=== PATIENT | male | born 1955 | race Caucasian/White ===

== ENCOUNTER → 2020-08-05 18:38 | Outpatient (CLI) | payer MEDICARE, SELFPAY ==
[2020-08-05 19:05] LABS: Basophils # 0.1 K/mm3 (0-0.2); Basophils % 0.7 % (0.1-2.0); Eosinophils # 0.1 K/mm3 (0.0-0.4); Eosinophils % 0.9 % (0.1-12.0); Hematocrit 52.1 % (42.0-52.0); Hemoglobin 17.3 g/dL (14.1-18.0); Lymphocytes # 1.8 K/mm3 (0.7-4.5); Lymphocytes % 21.1 % (10-50); Mean Corpuscular HGB Conc 33.1 g/dL (31.8-35.4); Mean Corpuscular Hemoglobin 28.8 pg (27.0-31.2); Mean Platelet Volume 7.8 fl (7.4-10.4); Monocytes # 0.6 K/mm3 (0.1-1.0); Monocytes % 6.5 % (1.7-9.3); Neutrophils % 70.8 % (37.0-80.0); Platelet Count 234 K/mm3 (142-424); Red Blood Count 5.99 M/mm3 (4.60-6.20); White Blood Count 8.5 K/mm3 (4.8-10.8)
[2020-08-05 19:21] LABS: Alanine Aminotransferase 63 U/L (12-78); Albumin Level 5.2 g/dl (3.5-5.0); Albumin/Globulin Ratio 1.4 (1.1-1.8); Alkaline Phosphatase 83 U/L (38-126); Aspartate Amino Transferase 58 U/L (17-59); Blood Urea Nitrogen 15 mg/dl (9-20); Calcium 10.3 mg/dl (8.4-10.2); Carbon Dioxide 31 mmol/L (22.0-30.0); Chloride 98 mmol/L (98-107); Chol/HDL Ratio 4.1 (1-3.5); Cholesterol 249 mg/dl (140-200); Estimated Glomerular Filt Rate 67 ml/min (>60); GFR (African American) 81 ML/MIN (>60); Globulin 3.6 g/dL (1.3-3.2); Glucose 87 mg/dl (74-100); HDL Cholesterol 61 mg/dl (40-60); Sodium 139 mmol/L (136-145); Total Protein,Serum 8.8 g/dl (6.3-8.2); Triglycerides 163 mg/dl (30-150); VLDL Cholesterol 33 mg/dL (0-40)
[2020-08-05 19:32] LABS: Direct LDL Cholesterol 157.15 mg/dL (100-129)
[2020-08-05 19:38] LABS: T4 (Thyroxine) 6.8 ug/dl (5.53-11.0)
[2020-08-05 19:51] LABS: Prostate Specific Ag Screen 1.8 ng/ml (0.0-4.0); Thyroid Stimulating Hormone 2.02 uIU/mL (0.465-4.68)
== END ==
PROVIDERS: Visit Provider Family Medicine
DX: R53.83 Other fatigue (principal); Z12.5 Encounter for screening for malignant neoplasm of prostate; E78.5 Hyperlipidemia, unspecified
CPT/HCPCS: 80053; 80061; 84436; 84443; 85025; G0103

== ENCOUNTER → 2020-08-17 08:11 | Outpatient (CLI) | payer MEDICARE, OTHER, SELFPAY ==
--- NOTE | 2020-08-17 08:11 | US_ITS ---
PROCEDURE: US ABDOMEN LIMITED CLINICAL INDICATION: attention liver Elevated liver enzymes COMPARISON: No exams were available for comparison FINDINGS: PANCREAS: Unremarkable. No obvious mass or abnormal fluid collection. No ductal dilatation LIVER: There is a 19 x 17 mm cyst within the left hepatic lobe.. Homogeneous echogenicity. No intrahepatic biliary ductal dilatation evident. There is appropriate direction of blood flow within a non dilated portal vein. Fatty liver. RIGHT KIDNEY: Unremarkable. Normal size and echogenicity. No hydronephrosis GALLBLADDER: Multiple gallstones are present. The common bile duct is normal at 4 mm. No gallbladder wall thickening or pericholecystic fluid is evident. IMPRESSION: 1. Cholelithiasis. 2. 19 mm hepatic cyst. Fatty liver Dictated by: Alireza Mcknight MD 08/17/2020 18:45 Alireza Mcknight MD in [place] 08/17/2020 18:45
== END ==
PROVIDERS: PCP Family Medicine; Visit Provider Family Medicine
DX: R17 Unspecified jaundice (principal)
CPT/HCPCS: 76705

== ENCOUNTER → 2020-08-31 13:53 | Outpatient (CLI) | payer MEDICARE, OTHER, SELFPAY ==
[2020-08-31 15:08] LABS: Chloride 102 mmol/L (98-107); Sodium 141 mmol/L (136-145)
[2020-08-31 15:10] LABS: Amylase 67 U/L (30-110); Blood Urea Nitrogen 20 mg/dl (9-20); Estimated Glomerular Filt Rate 60 ml/min (>60); GFR (African American) 73 ML/MIN (>60)
[2020-08-31 15:11] LABS: Alanine Aminotransferase 57 U/L (12-78); Albumin Level 4.9 g/dl (3.5-5.0); Albumin/Globulin Ratio 1.5 (1.1-1.8); Alkaline Phosphatase 87 U/L (38-126); Aspartate Amino Transferase 50 U/L (17-59); Bilirubin,Total 1.6 mg/dl (0.2-1.3); Calcium 10.4 mg/dl (8.4-10.2); Carbon Dioxide 30 mmol/L (22.0-30.0); Globulin 3.2 g/dL (1.3-3.2); Glucose 94 mg/dl (74-100); Lipase 98 U/L (23-300); Total Protein,Serum 8.1 g/dl (6.3-8.2)
== END ==
PROVIDERS: Visit Provider Surgery
DX: Z80.0 Family history of malignant neoplasm of digestive organs (principal); K80.20 Calculus of gallbladder without cholecystitis without obstruction; E80.6 Other disorders of bilirubin metabolism; K76.9 Liver disease, unspecified
CPT/HCPCS: 36415; 80053; 82150; 83690

== ENCOUNTER → 2020-09-05 09:44 | Outpatient (CLI) | payer MEDICARE, OTHER, SELFPAY ==
--- NOTE | 2020-09-05 09:44 | CT_ITS ---
PROCEDURE: CT ABDOMEN WO/W CON CLINICAL HISTORY: elevated bilrubin Attn pancreas COMPARISON: US US ABDOMEN LIMITED from 08/17/2020 TECHNIQUE: Axial images obtained with sagittal and coronal reformats. All CT scans at the facility use one or more dose reduction, viz: automated exposure control, ma/kV adjustment per patient size (including targeted exams where dose is matched to indication, i.e. head), or iterative reconstruction technique. FINDINGS: 5 mm noncalcified nodules present in the region of the right minor fissure and may be due to small lymph node. Dynamic post enhanced images are obtained. Hepatic steatosis. There is a 2 cm enhancing lesion in the left hepatic lobe segment 4A. This is not discernible on the unenhanced images or the immediate arterial phase images but shows homogeneous enhancement equal to the vasculature enhancement on the portal phase images and 5 minutes delayed images. No peripheral puddling of contrast. This may account for the hypoechoic abnormality noted on ultrasound as no cyst are apparent on this exam. There is some focal fatty sparing in the gallbladder fossa region. Gallstones are noted. No biliary dilatation. The spleen, adrenal glands, and pancreas have an unremarkable appearance. Small bilateral renal cyst. No renal or ureteral calculi or hydronephrosis. The No evidence of appendicitis. IMPRESSION: 1. Cholelithiasis. 2. Enhancing lesion in the left hepatic lobe measuring 2 cm. Enhancement pattern is atypical for hemangioma, FNH, and hepatic adenoma. Atypical appearance of these entities is a consideration as well as metastatic disease. MRI without and with contrast may provide further evaluation. 3. Fatty liver Dictated by: Alireza Mcknight MD 09/06/2020 12:23 Alireza Mcknight MD in [facility] 09/06/2020 12:23
== END ==
PROVIDERS: PCP Family Medicine; Visit Provider Surgery
DX: Z80.0 Family history of malignant neoplasm of digestive organs (principal); E80.6 Other disorders of bilirubin metabolism
CPT/HCPCS: 74170; Q9967

== ENCOUNTER → 2020-09-12 09:42 | Outpatient (CLI) | payer MEDICARE, OTHER, SELFPAY ==
--- NOTE | 2020-09-12 09:42 | MR_ITS ---
PROCEDURE: MR ABDOMEN WO/W CON CLINICAL INDICATION: hepatic adenoma Abnormal CT scan x1wk ago. 19ml prohance given. Lot:[id number] exp:AUG 2022 bun:20 cre:1.2 gfr:60. Prior CT 09-05-20. COMPARISON: US US ABDOMEN LIMITED from 08/17/[address] ABDOMEN WO/W CON from 09/05/2020 TECHNIQUE: Images are obtained without and with gadolinium enhancement with dynamic enhanced imaging with hemangioma protocol. Delayed images are also performed. FINDINGS: There is a 2 cm lesion in the left hepatic lobe segment 4 B. this has unusual imaging characteristics mostly hypointense on coronal T2 haste with some increase signal along the inferior margin on the axial T2 haste fat sat. The lesion is hypointense on T1. There is suggestion of some minimal peripheral contrast enhancement on the arterial phase images. There is homogeneous enhancement on the portal venous phase images. This enhancement persists at the 5, 10, and 15 minutes images. Incidental note is made of cholelithiasis. The pancreas, kidneys, and adrenal glands have an unremarkable appearance as does the spleen. IMPRESSION: 1. Unusual 2 cm lesion in the left hepatic lobe segment 4 B. the delayed persistent enhancement leads 1 to suspect that this represents an atypical hemangioma. Metastatic lesion should not show persistent enhancement on the 15 minutes images. These features are not consistent with hepatic adenoma or focal nodular hyperplasia. One would expect a typical hemangioma to show hyperintensity on the T2 weighted images similar to CSF however, this is not the case. Also 1 would expect increased echogenicity of the lesion on ultrasound. The lesion was hyperechoic on ultrasound. Possibly due to a cavernous hemangioma. Hepatocellular carcinoma also not a consideration with these imaging features. Would recommend a [address] follow-up to confirm short term stability. If the patient's has old exams, it would be suggested a be submitted for comparison. 2. Cholelithiasis Dictated by: Alireza Mcknight MD 09/14/2020 11:14 Alireza Mcknight MD in [place] 09/14/2020 11:14
== END ==
PROVIDERS: PCP Family Medicine; Visit Provider Surgery
DX: D13.4 Benign neoplasm of liver (principal)
CPT/HCPCS: 74183; A9576

== ENCOUNTER → 2021-07-14 16:27 | Outpatient (CLI) | payer MEDICARE, OTHER, SELFPAY ==
--- NOTE | 2021-07-14 16:33 | XR_ITS ---
FINAL REPORT CLINICAL HISTORY: covid pneumonia FINDINGS: TWO VIEWS OF THE CHEST The heart is normal in size. The mediastinum is unremarkable. There are patchy bilateral pulmonary opacities consistent with pneumonia, may represent viral pneumonia. There is no pneumothorax. IMPRESSION: Bilateral pneumonia as above. Reviewed, Interpreted and Dictated by Orlando Pineda III, MD Transcribed by Lyndsey Parker Authenticated by Orlando Pineda III, MD on 07/14/2021 04:55:24 PM [facility]
[2021-07-14 17:16] LABS: Basophils # 0.1 K/mm3 (0-0.2); Basophils % 0.8 % (0.1-2.0); Eosinophils % 0.1 % (0.1-12.0); Hematocrit 47.2 % (42.0-52.0); Hemoglobin 15.9 g/dL (14.1-18.0); Lymphocytes # 1.1 K/mm3 (0.7-4.5); Lymphocytes % 19.1 % (10-50); Mean Corpuscular HGB Conc 33.6 g/dL (31.8-35.4); Mean Corpuscular Hemoglobin 28.9 pg (27.0-31.2); Mean Corpuscular Volume 86.1 fl (80-94); Mean Platelet Volume 7.6 fl (7.4-10.4); Monocytes # 0.4 K/mm3 (0.1-1.0); Monocytes % 7.8 % (1.7-9.3); Neutrophils % 72.1 % (37.0-80.0); Platelet Count 211 K/mm3 (142-424); Red Blood Count 5.49 M/mm3 (4.60-6.20); Red Cell Distribution Width 13.5 % (11.5-17.5); White Blood Count 5.5 K/mm3 (4.8-10.8)
[2021-07-14 17:52] LABS: Alanine Aminotransferase 66 U/L (12-78); Albumin/Globulin Ratio 1.4 (1.1-1.8); Alkaline Phosphatase 84 U/L (38-126); Anion Gap 11.2 mEq/L (5-15); Aspartate Amino Transferase 105 U/L (17-59); Bilirubin,Total 1.6 mg/dl (0.2-1.3); Blood Urea Nitrogen 22 mg/dl (9-20); Calcium 8.7 mg/dl (8.4-10.2); Carbon Dioxide 32 mmol/L (22.0-30.0); Chloride 94 mmol/L (98-107); Estimated Glomerular Filt Rate 84 ml/min (>60); GFR (African American) 102 ML/MIN (>60); Globulin 2.8 g/dL (1.3-3.2); Glucose 114 mg/dl (74-100); Potassium 4.2 mmoL/L (3.5-5.1); Sodium 133 mmol/L (136-145); Total Protein,Serum 6.8 g/dl (6.3-8.2)
[2021-07-14 18:09] LABS: Procalcitonin 0.273 ng/mL (0.0-2.0)
== END ==
PROVIDERS: PCP Family Medicine; Visit Provider Family Medicine
DX: R05.9 Cough, unspecified (principal)
CPT/HCPCS: 36415; 71046; 80053; 84145; 85025; 86140

== ENCOUNTER → 2021-09-12 12:40 | Outpatient (CLI) | payer MEDICARE, OTHER, SELFPAY ==
--- NOTE | 2021-09-12 12:42 | CA_ITS ---
FINAL REPORT TECHNIQUE: Right lower extremity venous duplex was performed with augmentation and compression. CLINICAL HISTORY: leg swelling and pain. Patient denies trauma. States his knees were hurting due to occupation. He took Aleve and bilateral lower extremities began swelling x 1 week. FINDINGS: Proper flow is seen throughout the deep venous system. There is no evidence of deep venous thrombosis. IMPRESSION: No deep venous thrombosis of the right lower extremity. Reviewed, Interpreted and Dictated by Jose Granado MD Transcribed by Letty Welch Authenticated by Jose Granado MD on 09/12/2021 01:53:30 PM [facility]
== END ==
PROVIDERS: PCP Family Medicine; Visit Provider Family Medicine
DX: M79.89 Other specified soft tissue disorders (principal); M79.661 Pain in right lower leg
CPT/HCPCS: 93971